=== PATIENT | male | born 1990 | race American Indian/Alaskan Native ===

== ENCOUNTER 2019-05-25 18:45 | Emergency (ER) | payer OTHER ==
[~2019-05-25] VITALS: Ht 175.3 cm; Wt 78.9 kg
[2019-05-25 19:07] VITALS: BP 125/70
--- NOTE | 2019-05-25 19:34 | NUR ---
PT AMBULATED TO [facility]
[2019-05-25] MEDS ORDERED: ACETAMINOPHEN EXTRA STRENGTH 500 MG TAB PO ONE (19:45)
--- NOTE | 2019-05-25 19:55 | NUR ---
C/O LEFT HAND/WRIST PAIN X OTDAY. PT STATES HE FELL AND LANDED ON HIS LEFT SIDE. NO HEAD INJURY OR TRUAMA. RADIAL PULSES PRESENT BUE. RATES PAIN 8/10 AND DESCRIBES IT ACHING. NO OBVIOUS DEFORMITY NOTED. CMS INTACT. VSS. A & O X4. NKA. NO PMH.
[2019-05-25 20:40] VITALS: BP 125/70
--- NOTE | 2019-05-25 20:40 | NUR ---
LEFT WRIST VELCRO SPLINT PLACED. CMS INTACT AND WNL.
--- NOTE | 2019-05-25 20:40 | NUR ---
Patient discharged with v/s stable. Written and verbal after care instructions given and explained. Patient alert, oriented and verbalized understanding of instructions. Ambulatory with steady gait. All questions addressed prior to discharge. ID band removed. Patient advised to follow up with PMD. Rx of IBUPRFEN, AND ACETAMINOPHEN given. Patient educated on indication of medication including possible reaction and side effects. Opportunity to ask questions provided and answered.
== END 2019-05-25 20:40 | disposition home or self-care (01) ==
LOC: MED 18:45
DX: S60.212A Contusion of left wrist, initial encounter (principal); W19.XXXA Unspecified fall, initial encounter; Y93.89 Activity, other specified; Y92.89 Other specified places as the place of occurrence of the external cause; Y99.8 Other external cause status
CPT/HCPCS: 73090; 73110; 99283